=== PATIENT | male | born 1985 | race Caucasian/White ===

== ENCOUNTER 2016-06-27 12:35 | Emergency (ER) | payer OTHER ==
[2016-06-27] MEDS ORDERED: TRAMADOL 50 MG TAB ONE (15:27)
[2016-06-27] MEDS ORDERED: MORPHINE 2 MG/ML SYR IV PRN (15:55)
[2016-06-27] MEDS ORDERED: SALINE FLUSH 10 ML FLUSH PRN (15:55)
[2016-06-27] MEDS ORDERED: ONDANSETRON 4 MG VIAL IV PUSH PRN (15:55)
[2016-06-27] MEDS ORDERED: CEFAZOLIN 2,000 MG in SODIUM CHLORIDE 0.9% 100 ML IV ONE (15:55)
[2016-06-27] MEDS ORDERED: SODIUM CHLORIDE 0.9% 1,000 ML IV SCH (15:55)
== END 2016-06-27 16:03 | disposition home or self-care (01) ==
LOC: FASTR 12:35
DX: S46.812A Strain of other muscles, fascia and tendons at shoulder and upper arm level, left arm, initial encounter (principal); M75.52 Bursitis of left shoulder; X50.3XXA Overexertion from repetitive movements, initial encounter; X50.0XXA Overexertion from strenuous movement or load, initial encounter; Z87.891 Personal history of nicotine dependence
CPT/HCPCS: 87071; 87077; 87186